=== PATIENT | male | born 1985 | race African-American/Black ===

== ENCOUNTER 2020-07-16 02:50 | Emergency (ER) | payer SELFPAY ==
[2020-07-16 03:21] LABS: BASOPHIL 0.6 % (0-2); EOSINOPHIL 1.7 % (0-5); HCT 45.2 % (42.0-52.0); HGB 15.7 g/dl (13.2-18.0); LYMPHOCYTE 31.9 % (15-48); MCHC 34.7 g/dL (32.0-36.0); MCV 86.4 fL (78.0-100.0); MPV 9.3 fL (6.0-9.5); NEUTROPHIL 54.5 % (41-80); NRBC 0; PLT 305 K/uL (150-400); RBC 5.23 M/uL (4.70-6.00); RDW 12.9 % (11.5-14.0); WBC 6.5 K/uL (4.0-10.5)
[2020-07-16 03:43] LABS: ALBUMIN 4.4 g/dL (3.4-5.0); BILIRUBIN - TOTAL 1.3 mg/dL (0.2-1.0); CREATININE 0.92 mg/dL (0.67-1.17); GLOBULIN (CALCULATION) 3.9 g/dL; POTASSIUM 3.5 mmol/L (3.5-5.1); TOTAL PROTEIN 8.3 g/dL (6.4-8.2)
== END 2020-07-16 04:00 ==
LOC: FER 02:50
PROVIDERS: Student in an Organized Health Care Education/Training Program
DX: Z02.89 Encounter for other administrative examinations (principal)
CPT/HCPCS: 36415; 80053; 85025; 99282